=== PATIENT | male | born 1980 | race Caucasian/White ===

== ENCOUNTER 2017-02-26 12:39 | Emergency (ER) | payer SELFPAY ==
[2017-02-26] MEDS ORDERED: Oxymetazoline HCl 0.05% ( 15 ML ) ONE (13:31)
[2017-02-26] MEDS ORDERED: AMOXicillin 250 MG CAP ONE (13:31)
[2017-02-26] MEDS ORDERED: Naproxen 500 MG TAB ONE (13:31)
== END 2017-02-26 13:35 | disposition home or self-care (01) ==
LOC: MADERS 12:39
DX: J01.90 Acute sinusitis, unspecified (principal); Z87.891 Personal history of nicotine dependence
CPT/HCPCS: 99283

== ENCOUNTER 2017-04-16 10:02 | Emergency (ER) | payer SELFPAY ==
[2017-04-16] MEDS ORDERED: Dexamethasone 4 MG TAB ONE (10:30)
== END 2017-04-16 10:54 | disposition home or self-care (01) ==
LOC: MADERS 10:02
DX: L25.9 Unspecified contact dermatitis, unspecified cause (principal); Z87.891 Personal history of nicotine dependence
CPT/HCPCS: 99282; J8540

== ENCOUNTER 2017-07-27 18:43 | Emergency (ER) | payer SELFPAY ==
[2017-07-27] MEDS ORDERED: Sulfameth/Trimethoprim DS 800-160mg TAB ONE (19:25)
[2017-07-27] MEDS ORDERED: Cephalexin 500 MG CAP ONE (19:25)
[2017-07-27] MEDS ORDERED: Naproxen 500 MG TAB ONE (19:25)
== END 2017-07-27 19:25 | disposition home or self-care (01) ==
LOC: MADERS 18:43
DX: L02.512 Cutaneous abscess of left hand (principal); Z87.891 Personal history of nicotine dependence
CPT/HCPCS: 99283